=== PATIENT | male | born 1985 | race Caucasian/White ===

== ENCOUNTER 2018-06-14 22:58 | Emergency (ER) | payer OTHER ==
[2018-06-14 23:22] VITALS: TEMP 99.3; BMI 36.6
[2018-06-15] MEDS ORDERED: CEPHALEXIN MONOHYDRATE 500 MG CAPSULE (UD) PO ONE (00:08)
--- NOTE | 2018-06-15 00:09 | PDOC ---
Attending Attestation - Resident Resident Name: Francheska Perez - ED Attending Attestation I have performed the following: I have examined & evaluated the patient, The case was reviewed & discussed with the resident, I agree w/resident's findings & plan, Exceptions are as noted - HPI HPI: 06/15/18 00:07 33 M with no PMH presenting with red rash to L zafar. Pt denies any trauma to the area. First noticed the redness about 3 days ago and gradually spread. Pt denies any F/C. Denies any purulent drainage or bleeding. No rashes anywhere else. - Physicial Exam PE: 06/15/18 00:08 "GENERAL: Awake, alert, and fully oriented, in no acute distress. HEAD: No signs of trauma EYES: PERRLA, EOMI, sclera anicteric, conjunctiva clear ENT: Auricles normal inspection, hearing grossly normal, nares patent, oropharynx clear without exudates. Moist mucosa NECK: Nontender, no stepoffs, Normal ROM, supple, no lymphadenopathy, JVD, or masses LUNGS: Breath sounds equal, clear to auscultation bilaterally. No wheezes, and no crackles HEART: Regular rate and rhythm, normal S1 and S2, no murmurs, rubs or gallops ABDOMEN: Soft, nontender, normoactive bowel sounds. No guarding, no rebound. No masses EXTREMITIES: Normal range of motion, no edema. No clubbing or cyanosis. No cords, erythema, or tenderness NEUROLOGICAL: Cranial nerves II through XII intact. 5/5 strength and sensation in all extremities, Normal speech, normal gait, normal cerebellar function SKIN: + 5cm patch of erythema on anterior L zafar, no induration/fluctuance noted , no drainage, no streaking, no ulcers - Medical Decision Making 06/15/18 00:08 33 M with likely cellulitis of L zafar. No s/s systemic illness. - Keflex Pt is well appearing, with normal vitals. Clinically stable for DC at this time. I discussed the physical exam findings, ancillary test results and final diagnoses with the patient. I answered all of the patient's questions. The patient was satisfied with the care received and felt comfortable with the discharge plan and treatment plan. The patient agrees to follow up with the primary care physician within 24-72 hours.
--- NOTE | 2018-06-15 00:12 | PDOC ---
History of Present Illness - General Chief Complaint: Wound Stated Complaint: LEFT ZAFAR PAIN & REDNESS Time Seen by Provider: 06/14/18 23:36 History Source: Patient Exam Limitations: No Limitations - History of Present Illness Initial Comments: 06/15/18 06:27 Pt is a 33yo M with PMH of Gout presenting to ED with complaints of L zafar redness and pain that started 3 days ago on Tuesday. Pt said he noticed redness to his zafar and it has been getting worse. He endorses fever of 101 on Tuesday and took Tamiflu. He has not had a fever since then. He denies other medication use, injury, trauma, bites, chills, abdominal pain, n/v/d, joint pains. Allergies: nkda Past History - Past Medical History Allergies/Adverse Reactions: Allergies Allergy/AdvReac Type Severity Reaction Status Date / Time No Known Allergies Allergy Verified 06/14/18 23:17 Home Medications: Ambulatory Orders NK [No Known Home Medication] 06/15/18 COPD: No - Immunization History Td Vaccination: No Immunization Up to Date: No - Suicide/Smoking/Psychosocial Hx Smoking Status: Yes Smoking History: Current some day smoker Have you smoked in the past 12 months: Yes Number of Cigarettes Smoked Daily: 1 Information on smoking cessation initiated: No Hx Alcohol Use: Yes (Occasional) Substance Use Type: Alcohol Review of Systems - Review of Systems Constitutional: No: Chills, Fever HEENTM: No: Symptoms Reported Respiratory: No: Cough, Shortness of Breath Cardiac (ROS): No: Chest Pain, Lightheadedness, Palpitations ABD/GI: No: Constipated, Diarrhea, Nausea, Vomiting, Abdominal cramping : No: Burning, Dysuria Musculoskeletal: No: Joint Swelling, Muscle Pain, Muscle Weakness Integumentary: Yes: See HPI, Erythema, Rash Neurological: No: Headache, Tingling, Tremors, Weakness *Physical Exam - Vital Signs Last Vital Signs Temp Pulse Resp BP Pulse Ox 99.3 F 92 H 18 140/93 99 06/14/18 23:15 06/14/18 23:15 06/14/18 23:15 06/14/18 23:15 06/14/18 23:15 - Physical Exam General Appearance: Yes: Nourished, Appropriately Dressed. No: Apparent Distress HEENT: positive: EOMI, MEGHA, Pharynx Normal Neck: positive: Trachea midline, Supple. negative: Lymphadenopathy (R), Lymphadenopathy (L) Respiratory/Chest: positive: Lungs Clear, Normal Breath Sounds Cardiovascular: positive: Regular Rhythm, Regular Rate, S1, S2. negative: Edema , JVD, Murmur Vascular Pulses: Carotid (R): 2+, Carotid (L): 2+, Dorsalis-Pedis (R): 2+, Doralis-Pedis (L): 2+ Gastrointestinal/Abdominal: positive: Normal Bowel Sounds, Soft. negative: Distended, Guarding, Rebound, Tenderness Musculoskeletal: negative: CVA Tenderness Extremity: positive: Normal Capillary Refill. negative: Pedal Edema, Swelling, Calf Tenderness Integumentary: positive: Normal Color, Dry, Warm, Rash (on L zafar 5-8cm, irregular patch. warm, erythematous and ttp. 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 Pt said he noticed redness to his zafar and it has been getting worse. He endorses fever of 101 on Tuesday and took Tamiflu. He has not had a fever since then. He denies other medication use, injury, trauma, bites, chills, abdominal pain, n/v/d, joint pains. Vitals; wnl PE: erythematous patch, warm and ttp on L zafar. Pt most likely has cellulitis. Lesion was marked by marker. Pt does not have systemic signs of infection, does not need labs at this time. Will give Pt Keflex 500mg in ED and DC with Rx for Keflex 500mg QID. Pt agreed to plan. Hemodynamcially stable. Can be dc home. *DC/Admit/Observation/Transfer Diagnosis at time of Disposition: Cellulitis Qualifiers: Site of cellulitis: extremity Site of cellulitis of extremity: lower extremity Laterality: left Qualified Code(s): L03.116 - Cellulitis of left lower limb - Discharge Dispostion Disposition: HOME Condition at time of disposition: Good Decision to Admit order: No - Referrals Referrals: Faustino Lee MD [Primary Care Provider] - - Patient Instructions Printed Discharge Instructions: DI for Cellulitis -- Adult Additional Instructions: You were seen here today for a rash on your leg. It looks like you have cellulitis, a skin infection. You have been prescribed an antibiotic called Keflex (cephalexin). You take it four times a day for 1 week. Please stop taking it if you develop rashes on your body with itching or difficulty breathing. Please keep the area clean and dry. Do not use any harsh soaps or cleaning agents. Come back to the emergency room if pain gets worse, rash gets bigger, you develop fever, you have more rashes, you are unable to move your leg, you have joint swelling or if any new concerning symptom develops. Thank you - Post Discharge Activity Forms/Work/School Notes: Back to Work
[2018-06-15] MEDS ORDERED: CEPHALEXIN MONOHYDRATE 500 MG CAPSULE (UD) ONE (00:14)
[2018-06-15 00:26] VITALS: BP 136/87; PULSE 87
== END 2018-06-15 00:26 | disposition home or self-care (01) ==
LOC: JER 22:58
DX: L03.116 Cellulitis of left lower limb (principal); F17.210 Nicotine dependence, cigarettes, uncomplicated
CPT/HCPCS: 99281-25